=== PATIENT | male | born 1970 | race Hispanic/Latino ===

== ENCOUNTER 2020-02-05 04:53 | Inpatient (IN) | payer OTHER ==
[~2020-02-05] VITALS: Ht 182.9 cm; Wt 122.0 kg
[2020-02-05] VITALS (15 sets, daily range): BP systolic 109–158; BP diastolic 65–105
[2020-02-05] MEDS ORDERED: FENTANYL CITRATE PF 50 MCG/1 ML 2ML VIAL ONE ×4 (05:12→21:49)
[2020-02-05] MEDS ORDERED: ONDANSETRON HCL 4 MG/2 ML VIAL ONE ×3 (05:12→12:45)
[2020-02-05 05:18] LABS: BASOPHILS % (AUTO) 0.1 % (0.0-5.0); EOSINOPHILS % (AUTO) 0.1 % (0.0-8.0); HEMATOCRIT 49.3 % (42-54); LYMPHOCYTES % (AUTO) 4.7 % (21.0-51.0); MEAN CORPUSCULAR HEMOGLOBIN 27.4 pg (27.0-33.0); MEAN CORPUSCULAR HGB CONC 31.8 g/dL (32.0-36.0); MONOCYTES % (AUTO) 7.6 % (3.0-13.0); PLATELET COUNT (AUTO) 213 K/uL (130-400); RED BLOOD CELL COUNT(AUTO) 5.73 MIL/uL (4.50-6.20); RED CELL DISTRIBUTION WIDTH 13.7 % (11.0-15.5); WHITE BLOOD COUNT (AUTO) 15.3 K/uL (4.8-10.8)
[2020-02-05 05:35] LABS: APPEARANCE,URINE Clear (CLEAR); BILIRUBIN,URINE Negative (NEGATIVE); COLOR,URINE Yellow (YELLOW); GLUCOSE, URINE (UA) >=1000 mg/dL (NEGATIVE); KETONES,URINE 15 mg/dL (NEGATIVE); LEUKOCYTE ESTERASE ,URINE Small (NEGATIVE); NITRATE,URINE Negative (NEGATIVE); OCCULT BLOOD,URINE Small (NEGATIVE); PH,URINE 6.5 (5.0-8.0); PROTEIN,URINE POS 1+ mg/dL (NEGATIVE)
[2020-02-05 05:36] LABS: CREATININE 0.7 mg/dL (0.5-1.5); POTASSIUM 3.9 mmol/L (3.5-5.1)
[2020-02-05 05:43] LABS: ALBUMIN 3.9 g/dL (3.5-5.0); BILIRUBIN,TOTAL 0.3 mg/dL (0.2-1.0)
[2020-02-05 05:46] LABS: BACTERIA,URINE None Seen /HPF (None Seen); SQUAMOUS EPITHELIAL CELL,UR Rare /HPF (0-2); YEAST,URINE BUDDING Rare /HPF (None Seen)
[2020-02-05] MEDS ORDERED: KETOROLAC TROMETHAMINE 30MG/ML ONE (05:51)
[2020-02-05] MEDS ORDERED: ZOSYN 3.375GM+NS 50ML 50 ML IV ONE (06:29)
[2020-02-05] MEDS ORDERED: ASPIRIN 325 MG TABLET ONE (06:29)
[2020-02-05] MEDS ORDERED: METOPROLOL TARTRATE 50 MG TAB ONE (06:47)
[2020-02-05] MEDS ORDERED: AMLODIPINE BESYLATE 5 MG TAB ONE (06:47)
[2020-02-05] MEDS ORDERED: HYDROMORPHONE HCL 0.5 MG/0.5 ML ML IVP PRN (07:30)
[2020-02-05] MEDS ORDERED: ONDANSETRON HCL 4 MG/2 ML VIAL IVP PRN (07:30)
[2020-02-05] MEDS: 1/2 NORMAL SALINE 1,000 ML IV SCH ×2 (07:30→15:30)
[2020-02-05] MEDS: ASPIRIN 81 MG EC TAB PO SCH (09:00)
[2020-02-05] MEDS ORDERED: PANTOPRAZOLE 40 MG/VIAL IVP SCH (09:00)
[2020-02-05] MEDS ORDERED: AMPICILLIN SODIUM/SULBACTAM NA 1.5GM VIAL ONE ×2 (10:45→22:27)
[2020-02-05] MEDS ORDERED: HYDROMORPHONE HCL 0.5 MG/0.5 ML ML ONE (10:46)
[2020-02-05] MEDS ORDERED: DEXAMETHASONE SOD PHOSPHATE 10MG/ML 1ML VIAL ONE (12:44)
[2020-02-05] MEDS ORDERED: LIDOCAINE PF 2% 5ML ABBOJECT ONE (12:44)
[2020-02-05] MEDS ORDERED: MIDAZOLAM HCL 1 MG/ML 2ML VIAL ONE (12:45)
[2020-02-05] MEDS ORDERED: GLYCOPYRROLATE 1 MG/5 ML SYRINGE ONE (12:45)
[2020-02-05] MEDS ORDERED: PROPOFOL 10 MG/ML 20ML VIAL IV ONE (12:45)
[2020-02-05] MEDS ORDERED: ROCURONIUM 10MG/1ML SYR 10 MG/ML ML ONE (12:46)
[2020-02-05] MEDS: ZOSYN 3.375GM+NS 50ML 50 ML IV SCH ×2 (13:00→21:00)
[2020-02-05 13:29] LABS: TROPONIN I 0.12 ng/mL (0.00-0.06)
--- NOTE | 2020-02-05 16:08 | NUR ---
INITIAL SW met with patient and spouse, Jennifer Doe, [phone]. No home services. DME: [facility], glucometer (uses insulin). Patient is able to complete ADL's independently and drives. He is employed by [employer]. PCP is Dr. Eddie Archuleta. Pharmacy is [facility] in [place]. DCP is home. Addendum: 02/05/20 at 1609 by NAIN DELACRUZ SS Amended: Links added.
[2020-02-05] MEDS ORDERED: IOHEXOL-350 50ML VIAL IV ONE (16:38)
[2020-02-05] MEDS ORDERED: DAPA1TAB5 PO (17:59)
[2020-02-05] MEDS ORDERED: LISI40TA4 PO (17:59)
[2020-02-05] MEDS ORDERED: PRAV40TA3 PO (17:59)
[2020-02-05] MEDS ORDERED: INSU300I SQ (17:59)
[2020-02-05] MEDS ORDERED: DULA1.5P SQ (17:59)
[2020-02-05] MEDS ORDERED: CLON1PAT TD (17:59)
[2020-02-05] MEDS ORDERED: AMLO-257 PO (17:59)
[2020-02-05] MEDS ORDERED: METO200T49 PO (17:59)
[2020-02-05] MEDS ORDERED: BUPIVACAINE/EPI/PF 0.5% 30ML VIAL IJ ONE (21:03)
[2020-02-06] VITALS (8 sets, daily range): BP systolic 142–156; BP diastolic 82–94
[2020-02-06] MEDS ORDERED: TRAMADOL HCL 50 MG TABLET PO PRN ×2 (00:45)
[2020-02-06] MEDS ORDERED: ACETAMINOPHEN 325 MG TAB PO PRN (00:45)
[2020-02-06] MEDS: ZOSYN 3.375GM+NS 50ML 50 ML IV SCH (04:32)
[2020-02-06] MEDS ORDERED: UNASYN 3GM+NS 100ML 100 ML IV SCH (06:00)
[2020-02-06] MEDS: 1/2 NORMAL SALINE 1,000 ML IV SCH ×2 (06:34)
[2020-02-06] MEDS ORDERED: PANTOPRAZOLE SODIUM 40 MG TABLET.DR PO SCH (08:00)
--- NOTE | 2020-02-06 08:00 | NUR ---
NOTE AAOX3. S/P LAP VIANEY. DR PHAM MADE ROUNDS AND HE ORDERED TO FOLLOW UP TOMORROW IF HE GETS DISCHARGED TODAY. WILL WAIT FOR DR MAYERS TO ROUND AND CALL HIM IF NOT HERE BY 2:00 PATIENT OKAY WITH THIS PLAN. 4 SMALL INCISIONS TO ABDOMEN WITH BANDAID DRESSINGS TO SITE D/I ALL SECURED IN PLACE. DENIES ABDOMINAL PAIN OR N/V OR OTHER DISCOMFORT. POSSIBLE HOME.
[2020-02-06 08:13] LABS: HEMATOCRIT 44.1 % (42-54); MEAN CORPUSCULAR HEMOGLOBIN 27.9 pg (27.0-33.0); MEAN CORPUSCULAR HGB CONC 31.7 g/dL (32.0-36.0); MEAN CORPUSCULAR VOLUME 87.8 fL (79-99); RED BLOOD CELL COUNT(AUTO) 5.02 MIL/uL (4.50-6.20); RED CELL DISTRIBUTION WIDTH 14.4 % (11.0-15.5); WHITE BLOOD COUNT (AUTO) 13.1 K/uL (4.8-10.8)
[2020-02-06 08:29] LABS: ALBUMIN 2.9 g/dL (3.5-5.0); BILIRUBIN,TOTAL 0.4 mg/dL (0.2-1.0); CREATININE 1.1 mg/dL (0.5-1.5); POTASSIUM 4.1 mmol/L (3.5-5.1); TOTAL PROTEIN, SERUM 6.8 g/dL (6.0-8.3)
[2020-02-06] MEDS: ASPIRIN 81 MG EC TAB PO SCH (08:41)
[2020-02-06] MEDS ORDERED: UNASYN 3GM+NS 100ML 3 GM/100 ML IV.KIT IV SCH (09:00)
[2020-02-06] MEDS ORDERED: DOCUSATE SODIUM 100 MG CAP PO SCH (09:00)
--- NOTE | 2020-02-06 15:30 | NUR ---
DISCHARGE DISCHARGE INSTRUCTIONS GIVEN TO PATIENT AT THIS TIME. REFER TO DC SUMMARY FOR DETAILS NO OTHER PROBLEMS VOICED. GOT AN ORDERS FROM DR MAYERS TO AR. EXPLAINED TO HIM THAT PATIENT HAD TOLERATED DIET WITHOUT PROBLEMS AND THAT HE DID NOT HAVE ANY PAIN AND WAS BEING SENT HOME BY HOSPITALIST.
== END 2020-02-06 15:30 | disposition home or self-care (01) | DRG 419 ==
LOC: EDH 04:53 → EDHIP 06:00 → 4CH 14:30
PROVIDERS: ADMIT Internal Medicine; ATTEND Internal Medicine
PROC: 0FT44ZZ Resection of Gallbladder, Percutaneous Endoscopic Approach (ICD-10-PCS; principal; 2020-02-05 14:00)
DX: K80.00 Calculus of gallbladder with acute cholecystitis without obstruction (principal); E11.9 Type 2 diabetes mellitus without complications; E78.5 Hyperlipidemia, unspecified; I10 Essential (primary) hypertension; K82.A1 Gangrene of gallbladder in cholecystitis
CPT/HCPCS: 36415; 76705; 80053; 81001; 82550; 82948; 83690; 83874; 84484; 85025; 85027; 93005; C1758; C9113; G0378; J0295; J1100; J1170; J1885; J2001; J2250; J2405; J2543; J2704; J3010; J3490; J7030; Q9967

== ENCOUNTER 2021-11-02 06:54 | Inpatient (IN) | payer OTHER ==
[~2021-11-02] VITALS: Ht 182.9 cm; Wt 131.5 kg
[~2021-11-02 06:54] MED LIST: AMLO-257 PO; CLON1PAT TD; DAPA1TAB5 PO; DULA1.5P SQ; INSU300I SQ; LISI40TA9 PO; METO200T49 PO; PRAV40TA3 PO
[2021-11-02 07:30] LABS: BASOPHILS % (AUTO) 0.3 % (0.0-5.0); HEMATOCRIT 44.1 % (42-54); LYMPHOCYTES % (AUTO) 13.3 % (21.0-51.0); MEAN CORPUSCULAR HEMOGLOBIN 27.4 pg (27.0-33.0); MEAN CORPUSCULAR HGB CONC 30.4 g/dL (32.0-36.0); MEAN CORPUSCULAR VOLUME 90.2 fL (79-99); MONOCYTES % (AUTO) 11.7 % (3.0-13.0); NEUTROPHILS % (AUTO) 73.2 % (40.0-77.0); PLATELET COUNT (AUTO) 181 K/uL (130-400); RED BLOOD CELL COUNT(AUTO) 4.89 MIL/uL (4.50-6.20); RED CELL DISTRIBUTION WIDTH 14.4 % (11.0-15.5); WHITE BLOOD COUNT (AUTO) 6.2 K/uL (4.8-10.8)
[2021-11-02 07:44] LABS: INR 1.02 (0.85-1.15); PROTHROMBIN TIME 11.1 SEC (9.6-11.6)
[2021-11-02 07:49] LABS: CREATININE 0.8 mg/dL (0.5-1.5)
[2021-11-02 08:00] LABS: ALBUMIN 3.2 g/dL (3.5-5.0); BILIRUBIN,TOTAL 0.3 mg/dL (0.2-1.0); TOTAL PROTEIN, SERUM 6.9 g/dL (6.0-8.3)
[2021-11-02 08:14] LABS: B-TYPE NATRIURETIC PEPTIDE 195 pg/mL (0-100)
[2021-11-02] MEDS ORDERED: ASPIRIN 325MG EC TAB PO ONE (08:30)
[2021-11-02] MEDS ORDERED: ASPIRIN 325MG TAB ONE (08:30)
[2021-11-02] MEDS ORDERED: IOHEXOL 350 MG/ML 100ML INFUS..BTL IV ONE (08:31)
[2021-11-02] MEDS ORDERED: ENOXAPARIN SODIUM 120 MG/0.8ML SQ SCH (09:00)
[2021-11-02 09:35] LABS: CREATINE KINASE, TOTAL 167 U/L (21-232); MYOGLOBIN 77 ng/mL (10-92)
[2021-11-02] MEDS: CLOPIDOGREL 75MG TAB PO SCH (09:46)
[2021-11-02 10:26] LABS: APPEARANCE,URINE CLEAR (CLEAR); BILIRUBIN,URINE NEGATIVE (NEGATIVE); COLOR,URINE YELLOW (YELLOW); GLUCOSE, URINE (UA) NEGATIVE (NEGATIVE); KETONES,URINE NEGATIVE (NEGATIVE); LEUKOCYTE ESTERASE ,URINE SMALL (NEGATIVE); NITRATE,URINE NEGATIVE (NEGATIVE); OCCULT BLOOD,URINE TRACE-INTACT (NEGATIVE); PROTEIN,URINE 100 mg/dL (NEGATIVE); UROBILINOGEN,URINE 0.2 mg/dL (0.2-1.0)
[2021-11-02 10:35] VITALS: BP 171/104
[2021-11-02 10:45] LABS: BACTERIA,URINE Few /HPF (None Seen); RBC,URINE 0-1 /HPF (0-1); WBC,URINE 0-1 /HPF (0-1)
[2021-11-02 11:20] VITALS: BP 115/82
[2021-11-02] MEDS ORDERED: HYDR-4154 PO (12:00)
[2021-11-02] MEDS ORDERED: FURO40TA7 PO (12:00)
[2021-11-02] MEDS ORDERED: DEXTROSE 50%-WATER 50 ML DISP.SYRIN IV PRN (12:30)
[2021-11-02] MEDS ORDERED: GLUCAGON 1MG KIT 1 MG ML IM PRN (12:30)
[2021-11-02 15:20] VITALS: BP 157/86
[2021-11-02] MEDS: FUROSEMIDE 40MG VIAL IV SCH (17:13)
[2021-11-02 20:00] VITALS: BP 166/83
[2021-11-02] MEDS: INSULIN HUMULIN R 100 UNIT/ML 3ML SQ SCH (21:00)
[2021-11-02] MEDS: ENOXAPARIN SODIUM 120 MG/0.8ML SQ SCH (21:00)
[2021-11-02] MEDS ORDERED: ENOXAPARIN SODIUM 60 MG/0.6 ML SQ ONE (21:32)
[2021-11-02] MEDS: HYDRALAZINE 25MG TABLET PO SCH (21:36)
[2021-11-02] MEDS: METOPROLOL SUCCINATE 50 MG TAB.SR.24H PO SCH (21:36)
[2021-11-02] MEDS: LISINOPRIL 40 MG TABLET PO SCH (21:36)
[2021-11-02 23:42] VITALS: BP 135/68
[2021-11-03 03:48] VITALS: BP 160/94
[2021-11-03 05:36] LABS: CREATININE 0.8 mg/dL (0.5-1.5); POTASSIUM 3.6 mmol/L (3.5-5.1); THYROID STIMULATING HORMONE 0.36 uIU/mL (0.36-3.74)
[2021-11-03 07:25] VITALS: BP 164/91
[2021-11-03] MEDS: CLOPIDOGREL 75MG TAB PO SCH (08:04)
[2021-11-03] MEDS: ASPIRIN 81MG CHEW TAB PO SCH (08:04)
[2021-11-03] MEDS: LISINOPRIL 40 MG TABLET PO SCH ×2 (08:04→19:45)
[2021-11-03] MEDS: METOPROLOL SUCCINATE 50 MG TAB.SR.24H PO SCH ×2 (08:05→19:45)
[2021-11-03] MEDS: ATORVASTATIN 10 MG TABLET PO SCH (08:05)
[2021-11-03] MEDS: HYDRALAZINE 25MG TABLET PO SCH ×2 (08:05→19:46)
[2021-11-03] MEDS: ENOXAPARIN SODIUM 120 MG/0.8ML SQ SCH ×2 (08:16→19:46)
[2021-11-03] MEDS: FUROSEMIDE 40MG VIAL IV SCH (08:16)
[2021-11-03] MEDS: INSULIN GLARGINE 100 UNITS/ML 10 ML VIAL SQ SCH (08:17)
[2021-11-03] MEDS ORDERED: FUROSEMIDE 40 MG TABLET PO SCH (09:00)
[2021-11-03] MEDS: INSULIN HUMULIN R 100 UNIT/ML 3ML SQ SCH ×2 (09:00→21:00)
[2021-11-03 11:20] VITALS: BP 156/83
[2021-11-03 15:20] VITALS: BP 165/86
[2021-11-03 18:48] LABS: COLLECTION PERIOD,URINE 24 HR; TOTAL VOLUME 24HRS,URINE 1700 mL; TPROTEIN TIMED,URINE 64 mg/dL; TPROTEIN U,24HR CALC 1088 mg/24HR (0-165)
[2021-11-03 20:07] VITALS: BP 183/95
[2021-11-03 23:30] VITALS: BP 134/66
[2021-11-04] VITALS (10 sets, daily range): BP systolic 139–194; BP diastolic 72–105
[2021-11-04 05:18] LABS: INR 1.05 (0.85-1.15); PROTHROMBIN TIME 11.4 SEC (9.6-11.6)
[2021-11-04 05:19] LABS: PARTIAL THROMBOPLASTIN TIME 30.8 SEC (26.3-35.5)
[2021-11-04 05:27] LABS: ALBUMIN 2.9 g/dL (3.5-5.0); BILIRUBIN,TOTAL 0.4 mg/dL (0.2-1.0); CREATININE 0.7 mg/dL (0.5-1.5); POTASSIUM 3.9 mmol/L (3.5-5.1); TOTAL PROTEIN, SERUM 6.4 g/dL (6.0-8.3)
[2021-11-04 05:29] LABS: BASOPHILS % (AUTO) 0.2 % (0.0-5.0); EOSINOPHILS % (AUTO) 1.1 % (0.0-8.0); HEMATOCRIT 42.7 % (42-54); LYMPHOCYTES % (AUTO) 17.9 % (21.0-51.0); MEAN CORPUSCULAR HEMOGLOBIN 26.8 pg (27.0-33.0); MEAN CORPUSCULAR HGB CONC 29.7 g/dL (32.0-36.0); MEAN CORPUSCULAR VOLUME 90.3 fL (79-99); MONOCYTES % (AUTO) 14.1 % (3.0-13.0); NEUTROPHILS % (AUTO) 66.5 % (40.0-77.0); PLATELET COUNT (AUTO) 164 K/uL (130-400); RED BLOOD CELL COUNT(AUTO) 4.73 MIL/uL (4.50-6.20); RED CELL DISTRIBUTION WIDTH 14.1 % (11.0-15.5); WHITE BLOOD COUNT (AUTO) 5.5 K/uL (4.8-10.8)
[2021-11-04] MEDS: LISINOPRIL 40 MG TABLET PO SCH ×2 (06:12→19:40)
[2021-11-04] MEDS: HYDRALAZINE 25MG TABLET PO SCH ×2 (06:12→19:40)
[2021-11-04] MEDS: METOPROLOL SUCCINATE 50 MG TAB.SR.24H PO SCH ×2 (06:12→19:40)
[2021-11-04] MEDS: INSULIN GLARGINE 100 UNITS/ML 10 ML VIAL SQ SCH (08:00)
[2021-11-04] MEDS: INSULIN HUMULIN R 100 UNIT/ML 3ML SQ SCH ×2 (09:00→21:00)
[2021-11-04] MEDS: CLOPIDOGREL 75MG TAB PO SCH (09:00)
[2021-11-04] MEDS: ENOXAPARIN SODIUM 120 MG/0.8ML SQ SCH ×2 (09:00→22:40)
[2021-11-04 14:06] LABS: APPEARANCE BODY FLUID SLIGHTLY CLOUDY (CLEAR); BODY FLUID WBC 272 /cu. mm.; COLOR,BODY FLUID YELLOW (LT YELLOW); SPECIMENTYPE,BODY FLUID THORACENTESIS; TOTAL VOLUME,BODY FLUID 1500 mL
[2021-11-04 14:07] LABS: BODY FLUID RBC 450 /cu. mm.
[2021-11-04 14:09] LABS: BF LYMPHOCYTE 52 %; BF MESOTHELIAL 33 %; BF MONOCYTE 6 %; BF OTHER CELLS 8
[2021-11-04] MEDS: ASPIRIN 81MG CHEW TAB PO SCH (14:56)
[2021-11-04] MEDS: FUROSEMIDE 40MG VIAL IV SCH (14:56)
[2021-11-04] MEDS: ATORVASTATIN 10 MG TABLET PO SCH (14:56)
[2021-11-05] VITALS: BP 152/80
[2021-11-05 04:00] VITALS: BP 149/76
[2021-11-05] MEDS: INSULIN GLARGINE 100 UNITS/ML 10 ML VIAL SQ SCH (07:54)
[2021-11-05] MEDS: ASPIRIN 81MG CHEW TAB PO SCH (07:55)
[2021-11-05] MEDS: CLOPIDOGREL 75MG TAB PO SCH (07:56)
[2021-11-05] MEDS: METOPROLOL SUCCINATE 50 MG TAB.SR.24H PO SCH (07:56)
[2021-11-05] MEDS: HYDRALAZINE 25MG TABLET PO SCH (07:56)
[2021-11-05] MEDS: FUROSEMIDE 40MG VIAL IV SCH (07:56)
[2021-11-05] MEDS: ATORVASTATIN 10 MG TABLET PO SCH (07:57)
[2021-11-05] MEDS: LISINOPRIL 40 MG TABLET PO SCH (07:57)
[2021-11-05 08:00] VITALS: BP 149/90
[2021-11-05] MEDS: ENOXAPARIN SODIUM 120 MG/0.8ML SQ SCH (08:13)
[2021-11-05] MEDS: INSULIN HUMULIN R 100 UNIT/ML 3ML SQ SCH (09:00)
[2021-11-09] MEDS ORDERED: DULAGLUTIDE 1.5 MG SQ SCH (09:00)
[2021-11-09] MEDS ORDERED: CLONIDINE 0.1 MG/ 24 HR PATCH TD SCH (09:00)
== END 2021-11-05 12:00 | disposition home or self-care (01) | DRG 187 ==
LOC: EDH 06:54 → EDHIP 09:00 → 3CH 10:38
PROVIDERS: ADMIT Internal Medicine; ATTEND Internal Medicine
PROC: 0W993ZZ Drainage of Right Pleural Cavity, Percutaneous Approach (ICD-10-PCS; principal; 2021-11-04)
DX: J90 Pleural effusion, not elsewhere classified (principal); I24.9 Acute ischemic heart disease, unspecified; E87.70 Fluid overload, unspecified; E78.5 Hyperlipidemia, unspecified; E11.9 Type 2 diabetes mellitus without complications; I07.1 Rheumatic tricuspid insufficiency; E88.09 Other disorders of plasma-protein metabolism, not elsewhere classified; I10 Essential (primary) hypertension; Z20.822 Contact with and (suspected) exposure to COVID-19; Z79.02 Long term (current) use of antithrombotics/antiplatelets; E78.00 Pure hypercholesterolemia, unspecified; Z79.4 Long term (current) use of insulin; Z79.899 Other long term (current) drug therapy; Z90.49 Acquired absence of other specified parts of digestive tract
CPT/HCPCS: 32555; 36415; 71045; 71275; 76700; 80048; 80053; 81001; 82042; 82550; 82945; 82948; 83874; 83880; 84156; 84157; 84165; 84166; 84443; 84484; 85025; 85378; 85610; 85730; 86325; 87071; 87205; 87635; 87804; 89051; 93005; 93970; 99291; C1729; C9803; G0378; J1650; J1815; J1940; Q9967